=== PATIENT | female | born 1985 | race Two or more races ===

== ENCOUNTER 2024-06-07 07:28 | Emergency (ER) | payer MEDICAID, SELFPAY ==
[2024-06-07 07:28] VITALS: BMI 26.6
[2024-06-07 07:40] VITALS: BP 114/76; PULSE 70; RESP 18; TEMP 36.4; O2SAT 100; BMI 26.6
--- NOTE | 2024-06-07 07:43 | PD.EDDENTL ---
ED Dental RME/HPI General Chief complaint: Dental/Oral/Throat Stated complaint: TOOTHACHE Time Seen by Provider: 06/07/24 07:30 Arrival date/time: 06/07/24 07:28 38-year-old female presents emergency department today complains of left lower dental pain patient reports that she is currently on antibiotics but still has pain and swelling there are no other associated symptoms or aggravating factors no other modifying factors, patient denies taking medication before coming to ER today Limitations: no limitations Related Data Previous Rx's ?Medication ?Instructions ?Recorded Vitamin * 1 tab PO QDAY #60 tabs 06/04/16 clindamycin HCl 150 mg capsule 450 mg (3 x 150 mg) PO TID 7 days 06/07/24 #63 caps hydrocodone 5 mg-acetaminophen 325 1 tab PO BID PRN pain #8 tabs 06/07/24 mg tablet Allergies Allergy/AdvReac Type Severity Reaction Status Date / Time No Known Allergies Allergy Verified 06/07/24 07:31 Review of Systems Review of Systems Systems Reviewed: All systems reviewed, normal except as documented Constitutional Constitutional: Reports system reviewed and no additional complaints, except as documented, Denies fever(s) and Denies headache(s) Eyes Eyes: Reports system reviewed and no additional complaints, except as documented and Denies blurry vision ENT Ears, Nose, Mouth, and Throat: Reports system reviewed and no additional complaints, except as documented, Reports dental pain, Reports facial pain, Denies headache(s), Reports mouth pain, Denies nasal congestion, Reports nasal discharge, Reports nasal obstruction, Denies sinus pain and Denies sinus pressure Cardiovascular Cardiovascular: Reports system reviewed and no additional complaints, except as documented, Denies chest pain and Denies dyspnea Respiratory Respiratory: Reports system reviewed and no additional complaints, except as documented, Denies chest congestion, Denies cough and Denies dyspnea Gastrointestinal Gastrointestinal: Reports system reviewed and no additional complaints, except as documented and Denies abdominal pain Integumentary/Breasts Skin/Breast: Reports system reviewed and no additional complaints, except as documented and Denies rash Neurologic Neurologic: Reports system reviewed and no additional complaints, except as documented, Reports as per HPI and Denies headache(s) Past Medical History Past Medical History CARDIAC: Negative Congestive Heart Failure RESPIRATORY: Negative Chronic Obstructive Pulmonary Disease (COPD) GENITOURINARY: Negative Renal Disease ENDOCRINE: Negative Diabetes Mellitus Type 1 or Diabetes Mellitus Type 2 Family History FAMILY HISTORY: Positive Family Gastrointestinal Problems; Negative Family Respiratory Disorders or Family Cardiac Disorders Surgical History SURGICAL: Negative Section Social History SMOKING STATUS: Current every day smoker ED Exam General Limitations: Present no limitations General appearance: Present alert and in no apparent distress Head Head exam: Present atraumatic, normocephalic and normal inspection Eye Eye exam: Present normal appearance, PERRL and EOMI; Absent conjunctival injection ENT ENT exam: Present mucous membranes moist Expanded ENT Exam Teeth numbered:  1. Fractured and Dental Tenderness Neck Neck exam: Present normal inspection, full ROM and trachea midline Chest Chest inspection: Present normal inspection and symmetric chest wall rise Respiratory Respiratory exam: Present normal lung sounds bilaterally; Absent respiratory distress Cardiovascular Cardiovascular exam: Present regular rate, normal rhythm and normal heart sounds Abdominal Exam Abdominal exam: Present soft and normal bowel sounds Extremities Exam Extremities exam: Present normal inspection and full ROM Back Exam Back exam: Present normal inspection and full ROM Neurological Exam Neurological exam: Present alert, oriented X3 and CN II-XII intact Psychiatric Psychiatric exam: Present normal affect and normal mood Skin Skin exam: Present warm, dry, intact and normal color Course Quality Measures none Orders Category Date Time Status HYDROcodone*/APAP 5/325 [[place] 5/325] Med 06/07/24 07:43 Discontinued 1 tab PO X1 ONE Vital Signs Vital signs: Vital Signs Temperature 97.6 F 06/07/24 07:40 Pulse Rate 70 06/07/24 07:40 Respiratory Rate 18 06/07/24 07:40 Blood Pressure 114/76 06/07/24 07:40 Pulse Oximetry (%) 100 06/07/24 07:40 Oxygen Delivery Method Room Air 06/07/24 07:40 O2 saturation 100% on room air within normal limits Dental / Oral MDM Narrative MDM Narrative:: 38-year-old female presents emergency department today complains of left lower dental pain patient reports that she is currently on antibiotics but still has pain and swelling there are no other associated symptoms or aggravating factors no other modifying factors, patient denies taking medication before coming to ER today On exam patient well-appearing patient does not appear ill or toxic patient does not appear in acute distress On exam patient has mild swelling left lower jaw patient has a broken tooth as well Patient given [place] for pain discharged with antibiotics and pain medication Patient instructed to follow-up with dentist soon as possible Patient data External records reviewed:: [facility] previous records Clinical information provided by:: patient Social determinants that could affect healthcare access:: none Patient has the following chronic illnesses:: None How is presenting disease/condition affected by chronic disease/condition?: no chronic disease Evaluation data The following diagnostics were reviewed and interpreted by me:: other (specify) (N/A) Lab and/or radiology exams considered but not ordered:: Consider not ordered Interpretation Summary: N/A Medications / Prescriptions Medications or Prescriptions considered but not ordered:: Given Medication administrations:: Medication Administration History Discontinued Medications Hydrocodone Bitart/Acetaminophen (Hydrocodone/Apap 5/325 Tablet) 1 tab PO X1 ONE Stop: 06/07/24 07:44 Given Consultations Consultation(s) initiated? (list below): No Diagnosis Dental Differential Diagnosis: gingival abscess, dental caries, toothache, dental abscess and fracture of tooth Most likely diagnosis given after review of the tests above:: Fracture of tooth, dental abscess Admission Indicated Admission indicated?: not indicated Admission Request Was there a request for admission?: No Disposition Plan Disposition Plan: Discharge Discharge Attestation Discharge Attestation: The patient and all family members were given an opportunity to ask questions and understood the discharge instructions. Discharge instructions specifically effects, indications for sooner follow up or return to the emergency department, and the expected course of current diagnosis. Patient condition: Stable Discharge Plan Plan Patient Disposition: HOME (Self Care) Disposition Comment: Stable Prescriptions/Referrals Prescriptions/Med Rec: New hydrocodone-acetaminophen 5-325 mg tablet 1 tab PO BID MDD 10 PRN (Reason: pain) Qty: 8 0RF clindamycin HCl 150 mg capsule 450 mg PO TID 7 Days Qty: 63 0RF No Action Vitamin * 1 EACH tablet 1 tab PO QDAY Qty: 60 0RF Referrals: Brain Kapadia MD [Primary Care Provider] - 06/09/24 Problem List Clinical Impression: Abscess, dental Patient/Caregiver Discharge Instructions Education Materials: Dental Abscess Additional Instructions: Please follow up with your dentist in the next 24-48hrs for any worsening symptoms return here immediately Print Language: Hungarian Stand Alone Forms: [employer] Award Info., Patient Portal Info Letter PA/MAXIMINO Supervising Physician PA/MAXIMINO Supervising Physician: Dr. [email or web address]
[2024-06-07] MEDS: HYDROcodone/APAP 5/325 TABLET 1 TAB PO (07:51)
== END 2024-06-07 07:57 | disposition home or self-care (01) ==
PROVIDERS: Emergency Provider Emergency Medicine; PCP Family Medicine
DX: K04.7 Periapical abscess without sinus (principal)
CPT/HCPCS: 99283; A9270